=== PATIENT | female | born 1980 | race Caucasian/White ===

== ENCOUNTER 2019-01-28 19:10 | Emergency (ER) | payer OTHER ==
[~2019-01-28] VITALS: Ht 170.2 cm; Wt 97.8 kg
[~2019-01-28 19:10] MED LIST: BACTDS PO; CELE100C PO; CLON1TAB13 PO; ELIM TOP; FER325 PO; HYDR-4011 PO; MEDR10TA2 PO; METH500T PO; OMEP40CA6 PO; PROP20TA4 PO
[2019-01-28 19:12] VITALS: BP 128/85; PULSE 91; RESP 20; Ht 170.2 cm; Wt 97.8 kg
[2019-01-28] MEDS ORDERED: KETOROLAC 30 MG INJ IM STA (20:20)
--- NOTE | 2019-01-28 20:20 | ERD ---
ER Documentation Chief Complaint Chief Complaint neck/shoulder/back pain s/p fall onto concrete x1day; chest pain non-provok HPI This is a 39-year-old female who presents here in the emergency department with complaints of chest pain, upper back pain, neck pain after falling yesterday. Stated that she was walking, tripped, fell backwards. Also complains of anxiety attacks and depression. States that she was sent here by mother through over. LMP: Stated that she is on it. G9, P6 and 3. Denies headache, head injury, loss of consciousness, dizziness, neck stiffness, throat pain, difficulty swallowing, difficulty breathing lying flat, shoulder pain, back pain, abdominal pain, nausea, vomiting, constipation, diarrhea, urinary symptoms, or possibility being , loss of bowel and bladder control, trauma, injury, falls, difficulty walking due to pain, numbness or tingling sensation, calf pain, recent travel, recent major surgery in the last 3 weeks, calf pain, recent long travel, recent exposure to any illness, recent antibiotic use in the last 3 months, fever, chills, seizures. Past medical history: Surgical history: Social: Denies smoking, use of alcoholic beverages, use of illegal drugs. ROS All systems reviewed and are negative except as per history of present illness. Medications Home Meds Active Scripts Hydroxyzine Hcl* (Hydroxyzine Hcl*) 50 Mg Tablet, 50 MG PO Q6H PRN for ANXIETY, #30 TAB Prov:ANTONYILABANMISHAAR F 01/28/19 Cyclobenzaprine Hcl* (Cyclobenzaprine Hcl*) 10 Mg Tablet, 10 MG PO Q8 PRN for MUSCLE SPASMS, #15 TAB Prov:PASILAKINGSLEY MAC F 01/28/19 Ibuprofen* (Motrin*) 800 Mg Tab, 800 MG PO Q6H PRN for PAIN AND OR ELEVATED TEMP, #30 TAB Prov:PASILABANMISHAAR F 01/28/19 Ferrous Sulfate* (Ferrous Sulfate*) 325 Mg Tabec, 325 MG PO TID, #60 TAB Prov:JONA JEFFERY MD 06/06/16 Medroxyprogesterone Acetate* (Provera*) 10 Mg Tablet, 10 MG PO DAILY for 5 Days, TAB Prov:JONA JEFFERY MD 06/06/16 Celecoxib* (Celebrex*) 100 Mg Capsule, 100 MG PO BID, #10 CAP Prov:CLEMENCIA BROWN DO 05/17/16 Hydrocodone/Acetaminophen ([place] 5-325 Tablet) 1 Each Tablet, 1 TAB PO Q6H PRN for PAIN, #7 TAB Prov:CLEMENCIA BROWN DO 05/17/16 Methocarbamol* (Robaxin*) 500 Mg Tab, 500 MG PO Q8, #20 TAB Prov:CLEMENCIA BROWN DO 05/17/16 Sulfamethoxazole-Trimethoprim* (Bactrim* DS) 800-160 Mg Tab, 1 TAB PO BID for 5 Days, TAB Prov:LAZARUS LENTZ PA-C 04/14/15 Permethrin* (Elimite*) 5% Cr, 1 APPLIC TOP ONCE, #1 TUB Prov:CLEMECNIA BROWN DO 03/08/15 Reported Medications Propranolol Hcl* (Propranolol Hcl*) 20 Mg Tablet, 20 MG PO BID, TAB 08/14/14 Clonazepam* (Clonazepam*) 1 Mg Tablet, 1 MG PO TID PRN for ANXIETY, TAB 08/14/14 Omeprazole* (Omeprazole*) 40 Mg Capsule.dr, 40 MG PO DAILY, CAP 08/14/14 Allergies Allergies: Coded Allergies: Amoxicillin (Verified Allergy, Intermediate, RASH, 10/20/14) morphine (Verified Allergy, Intermediate, RASH, 10/20/14) PMhx/Soc Anesthesia Reaction: No Hx Neurological Disorder: No Hx Respiratory Disorders: No Hx Cardiac Disorders: No Hx Alcohol Use: No Hx Substance Use: No Hx Tobacco Use: No Smoking Status: Never smoker Physical Exam Vitals Vital Signs Date Temp Pulse Resp B/P (MAP) Pulse Ox O2 O2 Flow FiO2 Time Delivery Rate 01/28/19 97.8 91 20 128/85 100 19:12 (99) Physical Exam Const: No acute distress Head: Atraumatic. Normocephalic. Scalp is intact. No deformities. Eyes: Normal Conjunctiva. No visual field loss. Good eye movement. Extraocular movement of her eyes are within normal limits. ENT: Normal External Ears, Nose and Mouth. Bilateral ears: No ear laceration. No bleeding. No clear discharge. TM is not erythematous. No hearing loss. No mastoid tenderness. Nose: Midline without deformity and without deviation. No clear discharge. No bleeding. No septal hematoma. Throat/lips: No lip laceration. No tongue laceration. No signs of tooth avulsions. Uvula is in midline and nondisplaced. Tonsils are +1 bilaterally without redness without exudates. Tolerating secretions. Patent airway. Speaks full and clear sentences. Neck: Full range of motion. No meningismus. Resp: Clear to auscultation bilaterally. Chest area: There is pain to palpation. No crepitus. No vesicular lesions. No deformities. No signs of punctured lungs. Pain to chest area during range of motion of the T-spine. Cardio: Regular rate and rhythm, no murmurs Abd: Soft, non tender, non distended. Normal bowel sounds. Negative Rodriguez sign. Skin: No petechiae or rashes. No vesicular lesions. Color appears normal for ethnicity. No skin tenting. No signs of severe dehydration. Back: No midline or flank tenderness. C-spine is in midline and has no bulging/swelling/discoloration but has pain to range of motion. C-spine is full range of motion. T-spine/L-spine are midline with good and full range of motion and is no swelling/deformity/bulging/point of tenderness. Bilateral hips are stable and unremarkable. Ext: No cyanosis, or edema. Right elbow: Has mild abrasion. Good and full range of motion. No deformities. No swelling. Right shoulder/humerus/forearm /wrist are unremarkable. Right radial pulses within normal limits. Has good and full function of his right hand. Capillary refills to right upper extremity are less than 2 seconds. Left upper extremity is unremarkable. Capillary refills to left upper extremity is less than 2 seconds. Neur: Awake and alert. Romberg test negative. No neurological deficits. Psych: Normal Mood and Affect. Denies auditory/visual hallucinations/delusions. Not suicidal. Not homicidal. Has good support system at home. Results 24 hrs Laboratory Tests Test 01/28/19 20:33 POC Beta HCG, Qualitative NEGATIVE Current Medications Medications Dose Sig/Soniya Start Time Status Last (Trade) Ordered Route PRN Stop Time Admin Dose Reason Admin Ketorolac 30 mg ONCE STAT 01/28/19 DC 01/28/19 Tromethamine IM 20:20 20:38 (Toradol) 01/28/19 20:21 Lorazepam 1 mg ONCE ONCE 01/28/19 DC 01/28/19 (Ativan) PO 22:30 22:32 01/28/19 22:31 Procedures/MDM Diagnostic tests: POC urine : Negative. Chest x-ray: No evidence of acute cardiopulmonary pathologic process. X-ray of the C-spine: 1. No evidence of acute fracture/malalignment on exam which does not adequately evaluate the C7-T1 level. If clinical suspicion persists, further evaluation with CT C-spine may be warranted. 2. Nonspecific mild reversal of cervical lordosis, possibly reflecting muscle spasm. 3. Minimal multilevel cervical uncovertebral spurring. This can be better evaluated by MRI if clinically warranted. Treatment: Toradol IM. Ativan. Re-evaluation: Denies headache, dizziness, neck pain. Denies chest pain. Denies auditory/visual hallucinations/delusions. Not suicidal. Not homicidal. Has the capacity to decide for herself. Has good support system at home. Romberg test is negative. No neurological deficits. Denies auditory/visual hallucinations/delusions. Not suicidal. Not homicidal. Has the capacity to decide for herself. Has good support system at home. Differential diagnosis I have low suspicion for pneumothorax, hemothorax, punctured lungs, pneumonia, pulmonary embolism, C-spine subluxation/fracture, carotid stenosis, compartment syndrome, displaced fracture, fracture. Final diagnosis: Multiple contusion. Anxiety. Prescription: Hydroxyzine. Motrin. Flexeril. Follow-up with PCP in the next 24-48 hours. Follow-up with your psychiatrist in the next 24 to 48 hours. Come back here in the emergency department for any new symptoms or any worsening symptoms. All questions and concerns were answered. Patient and family members verbalized understanding and agreed with plan of care. Hemodynamically stable on discharge. Departure Diagnosis: Primary Impression: Chest wall contusion Additional Impressions: Muscle spasm Anxiety Condition: Stable Additional Instructions: Follow-up with PCP in the next 24-48 hours. Follow-up with your psychiatrist in the next 24 to 48 hours. Come back here in the emergency department for any new symptoms or any worsening symptoms. KINGSLEY CASTORENA January 28, 2019 20:20
[2019-01-28] MEDS ORDERED: IBUP800T48 PO (22:13)
[2019-01-28] MEDS ORDERED: CYCL10TA7 PO (22:13)
[2019-01-28] MEDS ORDERED: HYDR50TA15 PO (22:14)
[2019-01-28] MEDS ORDERED: LORAZEPAM 1 MG TAB PO ONE (22:30)
== END 2019-01-28 22:41 | disposition home or self-care (01) ==
LOC: FTE 19:10
DX: S20.219A Contusion of unspecified front wall of thorax, initial encounter (principal); F41.9 Anxiety disorder, unspecified; W01.0XXA Fall on same level from slipping, tripping and stumbling without subsequent striking against object, initial encounter; Y92.9 Unspecified place or not applicable
CPT/HCPCS: 71046; 72040; 81025; J1885; Z7610; 96372